=== PATIENT | female | born 2000 | race Caucasian/White ===

== ENCOUNTER 2022-04-03 12:39 | Inpatient (IN) ==
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
[2022-04-03 13:44] LABS: Appearance Urine Clear (Clear); Bacteria Urine Automated 1+ (Negative); Blood Urine Negative (Negative); Color Urine Dark Yellow; Epithelial Cell Urine Auto >30 /lpf (0-5); Glucose Urine UA Negative (Negative); Ketones Urine 1+ (Negative); Leukocyte Esterase Urine Trace (Negative); Nitrite Urine Negative (Negative); Protein Urine 1+ (Negative); RBC Urine Automated 0-4 /hpf (0-4); Specific Gravity Urine 1.029 (1.000-1.030); Urobilinogen Urine Negative (Negative); pH Urine 6.5 (4.5-7.5)
[2022-04-03 13:55] LABS: Bilirubin Urine 1+ (Negative)
[2022-04-03 14:07] LABS: Hematocrit (blood only) 42.1 % (37-47); Mean Corpuscular Hemoglobin 26.1 pg (25-34); Mean Corpuscular Hgb Conc 33.3 g/dL (32-36); Mean Corpuscular Volume 78.4 fL (80-100); Mean Platelet Volume 11.1 fL (7.4-10.4); Platelet Count 181 K/uL (130-400); RDW Coefficient of Variation 16.2 % (11.5-14.5); RDW Standard Deviation 46.6 fL (36.4-46.3); Red Blood Count 5.37 M/uL (4.2-5.4); White Blood Count 4.99 K/uL (4.8-10.8)
[2022-04-03 14:16] LABS: Calcium Oxalate Crystals Urine Present (None Prsent); Mucus Urine Present (None Prsent)
[2022-04-03 14:29] LABS: Basophils # (auto) 0.04 K/uL (0-0.2); Basophils % (auto) 0.8 %; Immature Granulocytes # (auto) 0.01 K/uL (0.00-0.02); Immature Granulocytes % (auto) 0.2 %; Lymphocytes # (auto) 1.59 K/uL (1.2-3.4); Lymphocytes % (auto) 31.9 %; Monocytes # (auto) 0.43 K/uL (0.11-0.59); Monocytes % (auto) 8.6 %; Neutrophils # (auto) 2.92 K/uL (1.4-6.5); Neutrophils % (auto) 58.5 %
[2022-04-03 14:32] LABS: Amphetamines+Metham, Urine Neg (Neg); Barbiturates, Urine Neg (Neg); Benzodiazepine, Urine Neg (Neg); Cocaine, Urine Neg (Neg); MDMA (Ecstacy), Urine Neg (Neg); Methadone, Urine Neg (Neg); Opiate, Urine Neg (Neg); Phencyclidine, Urine Neg (Neg)
[2022-04-03 14:36] LABS: Acetaminophen 7 ug/ml (10-30); Salicylate < 3.0 mg/dl (3.0-30)
[2022-04-03 14:37] LABS: Albumin Globulin Ratio 1.2 (0.9-2); Albumin Level 4.3 gm/dl (3.4-5.0); BUN Creatinine Ratio 7.1 (10-20); Bilirubin,Total 0.3 mg/dl (0.2-1.0); Calcium 9.6 mg/dl (8.5-10.1); Creatinine Clr Calc Pharmacy 100.2 ml/min; Est GFR (African American) 115.1 ml/min; Est GFR (Non-African American) 99.3 ml/min; Globulin 3.6 gm/dl (2.5-4.0); Potassium 3.8 mmol/L (3.5-5.1); Total Protein 7.9 gm/dl (6.0-8.3)
[2022-04-03 14:39] LABS: Pregnancy Test, Serum Negative (Negative)
[2022-04-03] MEDS ORDERED: MAGNESIUM HYDROXIDE SUSP 30 ML UDC PO PRN (18:07)
[2022-04-03] MEDS ORDERED: BISMUTH SUBSALICYLATE LIQD 236 ML PO PRN (18:07)
[2022-04-03] MEDS ORDERED: SODIUM CHLORIDE 0.65% NA SOLN 45 ML (OCEAN) PRN (18:07)
[2022-04-03] MEDS ORDERED: hydrOXYzine HCl 25 MG TAB PO PRN ×2 (18:07)
[2022-04-03] MEDS ORDERED: ACETAMINOPHEN 325 MG TAB PO PRN (18:07)
[2022-04-03] MEDS ORDERED: ALUMINUM/MAGNESIUM SUSP 30 ML UDC PO PRN (18:07)
[2022-04-03] MEDS: PATIENT'S OWN ORAL CONTRACEPTIVE PO SCH (20:34)
[2022-04-04] MEDS ORDERED: PATIENT'S OWN ORAL CONTRACEPTIVE PO SCH (09:00)
[2022-04-04] MEDS ORDERED: NON-FORMULARY PATIENT'S OWN MED PO SCH (09:00)
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
[2022-04-04] MEDS: MIRTAZAPINE TAB 15 MG TAB PO SCH (20:58)
[2022-04-04] MEDS: PATIENT'S OWN ORAL CONTRACEPTIVE PO SCH (20:58)
--- NOTE | 2022-04-05 08:58 | Psychiatric Progress Note ---
Date of Service April 05, 2022 Impression / Recommendations Impression The patient is a 21 year old woman with a history of ADHD, depression, anxiety, self-harm and trauma who was admitted for worsening depression, trauma symptoms, self-harm urges and SI with plan of overdose in setting of recent breakup. Diagnostically consistent with PTSD and TERI as well as unspecified depression and ADHD by history. History of impulsivity without sleep or mood changes seems more consistent with ADHD or cluster B traits rather than BPAD type II and no family history of BPAD nor alyse so SSRI trial felt to be reasonable even in context of no current mood stabilizer. The patient is deemed unstable and requires psychiatric hospitalization for diagnostic clarification, safety and stabilization, medication management and development of further coping skills. 04/05/22: Continues to have limited intake which she attributes to anxiety causing nausea but does have hx of restriction so monitoring and will order liquid drink supplement as she may be better able to tolerate liquid. Tolerating sertraline though it may be worsening nausea slightly. Slept well with mirtazapine. Continues to with significant depression and anxiety. (1) MDD (major depressive disorder), recurrent episode, moderate: (2) Suicidal ideation: (3) Post traumatic stress disorder (PTSD): (4) TERI (generalized anxiety disorder): (5) ADHD: 04/05/22: Continue with current medication and tx plan. Adding Zofran for nausea. Boost supplement shakes to help increase nutritional intake. 04/04/2022: The patient was admitted to the [facility] ([facility] mental health unit) on q15 min checks (behavioral with suicide precautions) for safety. The patient will participate in group, recreational, and milieu therapies and will be offered additional individual and family sessions as clinically appropriate. -sertraline 25mg daily with breakfast -mirtazapine 7.5 mg qhs Inventory Assets Strengths: trauma survivor, supportive family, attending college Needs: medication management, stabilization, additional coping skills, additional outpatient resources Suicide Risk Level Suicide Risk Level: High (q15 min suicide checks) (High-Moderate) Suicide Risk Level Comments: Having SI with plan prior to hospitalization and ongoing mood symptoms but feels safe in the hospital and able to safety contract. Risk Factors Assessment : Yes Do You Have Access To A Gun?: No (Secured in the home - father and brother have keys) Mental Health Diagnoses: Yes Substance Use Disorders: No Previous Attempt: No Hopelessness: Yes Protective Factors Assessment Employed: No Interval History Identifying Information ABHI GAINES is a 21-year-old woman who currently lives in [facility] with her parents, has a history of BPAD II, anorexia, ADHD, and was admitted on 04/03/22 18:08 on a 201 voluntary commitment for SI with plan. Chief Complaint "I'm still really nauseous". Review of Systems Sleep Information Total Hours of Sleep: 8 Sleep Comments: pt on q-15 minute checks Meal Information Percent Meal Consumed - Breakfast: 25 Percent Meal Consumed - Lunch: 50 Percent Meal Consumed - Dinner: 50 Subjective Subjective Patient was seen & assessed and interval progress reviewed with treatment team nursing and social work. Had a sore throat last night but afebrile. Reporting low mood yesterday evening. Slept better last night and had no dreams. No side effects from the mirtazapine but continues to have nausea today which she attributes to decreased appetite. Only ate salad off her lunch tray but she denies any calorie counting or restriction but can't eat much due to nausea. Consented to a dose of zofran tonight at dinner to see if this helps as she's previously tried OTC options like TUMS without benefit. She feels the sertraline may have helped to give her a little more energy today. Physical Exam Psychiatric Orientation: alert and oriented x 3 Apperance: appropriately dressed and appropriately groomed Eye Contact: good eye contact Motor Behavior: no abnormal motor movements Speech: normal rate/rhythm/volume of speech Affect: + depressed affect and + anxious affect Mood: + depressed mood and + anxious mood Thought Process: goal directed thought process Thought Content: reality based without delusions Suicidal Thoughts: denies suicidal thoughts (intermittent passive thoughts, feels safe in the hospital ), denies suicidal plan and denies suicidal intent Homicidal Thoughts: denies homicidal thoughts Hallucinations: no auditory hallucinations and no visual hallucinations Cognition: recent memory grossly intact, remote memory grossly intact, attention grossly intact and language grossly intact Estimated Intelligence: consistent with education level Insight: + fair insight Judgement: + fair judgement Vital Signs (Past 24 Hours) Last Vital Signs Temp 36.5 C 04/05/22 06:00 Pulse 116 H 04/05/22 06:20 Resp 16 04/05/22 06:00 BP 106/64 04/05/22 06:20 Pulse Ox 96 05/30/22 19:26 Results & Data ([facility] [[email or web address] Current Inpatient Medications Current Inpatient Medications: Current Inpatient Medications Acetaminophen (Acetaminophen 325 Mg Tab) 650 mg PO Q4H PRN PRN Reason: Headache or Minor Fever Stop: 05/03/22 18:06 Last Admin: 04/04/22 19:38 Dose: 650 mg Documented by: Al Hydrox/Mg Hydrox/Simethicone (Aluminum/Magnesium Susp 30 Ml Udc) 30 ml PO Q4H PRN PRN Reason: GI Upset Stop: 05/03/22 18:06 Bismuth Subsalicylate (Bismuth Subsalicylate Liqd 236 Ml) 15 ml PO PRN PRN PRN Reason: Loose Stool Stop: 05/03/22 18:06 Hydroxyzine HCl (Hydroxyzine Hcl 25 Mg Tab) 50 mg PO HSZ PRN PRN Reason: Insomnia Stop: 05/03/22 18:06 Hydroxyzine HCl (Hydroxyzine Hcl 25 Mg Tab) 25 mg PO Q4H PRN PRN Reason: Anxiety Stop: 05/03/22 18:06 Magnesium Hydroxide (Magnesium Hydroxide Susp 30 Ml Udc) 30 ml PO DAILY PRN PRN Reason: Constipation Stop: 05/03/22 18:06 Mirtazapine (Mirtazapine Tab 15 Mg Tab) 7.5 mg PO HS JEANIE Stop: 05/04/22 21:59 Last Admin: 04/04/22 20:58 Dose: 7.5 mg Documented by: Miscellaneous (Patient's Own Oral Contraceptive) 1 ea PO DAILY@1999 [facility] Stop: 05/03/22 19:59 Last Admin: 04/04/22 20:58 Dose: 1 ea Documented by: Sertraline HCl (Sertraline Hcl 50 Mg Tablet) 25 mg PO QAM JEANIE Stop: 05/05/22 08:59 Sodium Chloride (Sodium Chloride 0.65% Na Soln 45 Ml ([place])) 1 - 2 sprays NA PRN PRN PRN Reason: Nasal Dryness/Congestion Stop: 05/03/22 18:06 Post Discharge Appointments Primary Care Physician Name Of Family Doctor: Dr. Mk Carlson
[2022-04-05] MEDS: SERTRALINE HCL 50 MG TABLET PO SCH (09:37)
[2022-04-05 16:21] LABS: Chlamydia Trach RNA NOT DETECTED (NOT DETECTED); GC (Neis gonorrhoeae) RNA NOT DETECTED (NOT DETECTED)
[2022-04-05] MEDS: ONDANSETRON 2 MG OD TAB PO PRN (17:15)
[2022-04-05] MEDS: PATIENT'S OWN ORAL CONTRACEPTIVE PO SCH (22:13)
[2022-04-05] MEDS: MIRTAZAPINE TAB 15 MG TAB PO SCH (22:13)
[2022-04-05 23:42] LABS: Marijuana Quant, GCMS Urine 284 ng/mL (<5)
[2022-04-06] MEDS: ONDANSETRON 2 MG OD TAB PO PRN (08:43)
--- NOTE | 2022-04-06 08:53 | Psychiatric Progress Note ---
Date of Service April 06, 2022 Impression / Recommendations Impression The patient is a 21 year old woman with a history of ADHD, depression, anxiety, self-harm and trauma who was admitted for worsening depression, trauma symptoms, self-harm urges and SI with plan of overdose in setting of recent breakup. Diagnostically consistent with PTSD and TERI as well as unspecified depression and ADHD by history. History of impulsivity without sleep or mood changes seems more consistent with ADHD or cluster B traits rather than BPAD type II and no family history of BPAD nor alyse so SSRI trial felt to be reasonable even in context of no current mood stabilizer. The patient is deemed unstable and requires psychiatric hospitalization for diagnostic clarification, safety and stabilization, medication management and development of further coping skills. 04/06/22: Continues to have decreased po intake but improving a little bit, poor sleep last night, ongoing depression, anxiety and PTSD symptoms. Consents to sertraline dose increase as she is tolerating this well. (1) MDD (major depressive disorder), recurrent episode, moderate: (2) Suicidal ideation: (3) Post traumatic stress disorder (PTSD): (4) TERI (generalized anxiety disorder): (5) ADHD: 04/06/22: Increase sertraline to 50mg qd with breakfast. Continue with mirtazapine. 04/05/22: Continue with current medication and tx plan. Adding Zofran for nausea. Boost supplement shakes to help increase nutritional intake. 04/04/2022: The patient was admitted to the [facility] ([facility] mental health unit) on q15 min checks (behavioral with suicide precautions) for safety. The patient will participate in group, recreational, and milieu therapies and will be offered additional individual and family sessions as clinically appropriate. -sertraline 25mg daily with breakfast -mirtazapine 7.5 mg qhs Inventory Assets Strengths: trauma survivor, supportive family, attending college Needs: medication management, stabilization, additional coping skills, additional outpatient resources Suicide Risk Level Suicide Risk Level: Moderate (q15 min suicide checks) Suicide Risk Level Comments: Having SI with plan prior to hospitalization and ongoing mood symptoms but feels safe in the hospital and denies SI and able to safety contract. Risk Factors Assessment : Yes Do You Have Access To A Gun?: No (Secured in the home - father and brother have keys) Mental Health Diagnoses: Yes Substance Use Disorders: No Previous Attempt: No Hopelessness: Yes Protective Factors Assessment Employed: No Interval History Identifying Information ABHI GAINES is a 21-year-old woman who currently lives in [facility] with her parents, has a history of BPAD II, anorexia, ADHD, and was admitted on 04/03/22 18:08 on a 201 voluntary commitment for SI with plan. Chief Complaint "I'm feeling a bit less unsettled". Review of Systems Sleep Information Total Hours of Sleep: 8 Sleep Comments: pt on q-15 minute checks Meal Information Percent Meal Consumed - Breakfast: 50 Percent Meal Consumed - Lunch: 20 Percent Meal Consumed - Dinner: 75 Nutrition Comment: Pt. ordered a salad, mashed potatoes and sherbet. Vanilla boost provided Subjective Subjective Patient was seen & assessed and interval progress reviewed with treatment team nursing and social work. Used prn zofran before breakfast, it improved after taking it last evening and ate 75% of her dinner. Out of her room. Feels her mood is improving a little bit but still with depression and trauma symptoms including physical sensations that remind of trauma and intrusive thoughts and flashbacks. Feels her appetite is improving. No SI nor thoughts of self-harm today. Still struggling with decreased motivation. Had some difficulty with sleep last night. Slight LOPEZ but no other medication side effects. No night terrors. Physical Exam Psychiatric Orientation: alert and oriented x 3 Apperance: appropriately dressed and appropriately groomed Eye Contact: good eye contact Motor Behavior: no abnormal motor movements Speech: normal rate/rhythm/volume of speech Affect: + depressed affect and + anxious affect Mood: + depressed mood and + anxious mood Thought Process: goal directed thought process Thought Content: reality based without delusions Suicidal Thoughts: denies suicidal thoughts Homicidal Thoughts: denies homicidal thoughts Hallucinations: no auditory hallucinations and no visual hallucinations Cognition: recent memory grossly intact, remote memory grossly intact, attention grossly intact and language grossly intact Estimated Intelligence: consistent with education level Insight: + fair insight Judgement: + fair judgement Vital Signs (Past 24 Hours) Last Vital Signs Temp 36.7 C 04/06/22 06:00 Pulse 78 04/06/22 06:21 Resp 16 04/06/22 06:00 BP 99/61 L 04/06/22 06:21 Pulse Ox 96 04/03/22 19:26 Results & Data ([facility]) Laboratory Results Laboratory Results - last 24 hr 04/03/22 04/03/22 13:09 13:09 U Marijuana THC Carboxy 284 H Drug Screen Comment SEE NOTE C.trachomatis RNA NOT DETECTED N.gonorrhoeae RNA NOT DETECTED Reference Lab Comment SEE NOTE Current Inpatient Medications Current Inpatient Medications: Current Inpatient Medications Acetaminophen (Acetaminophen 325 Mg Tab) 650 mg PO Q4H PRN PRN Reason: Headache or Minor Fever Stop: 05/03/22 18:06 Last Admin: 04/04/22 19:38 Dose: 650 mg Documented by: Al Hydrox/Mg Hydrox/Simethicone (Aluminum/Magnesium Susp 30 Ml Udc) 30 ml PO Q4H PRN PRN Reason: GI Upset Stop: 05/03/22 18:06 Bismuth Subsalicylate (Bismuth Subsalicylate Liqd 236 Ml) 15 ml PO PRN PRN PRN Reason: Loose Stool Stop: 05/03/22 18:06 Hydroxyzine HCl (Hydroxyzine Hcl 25 Mg Tab) 50 mg PO HSZ PRN PRN Reason: Insomnia Stop: 05/03/22 18:06 Hydroxyzine HCl (Hydroxyzine Hcl 25 Mg Tab) 25 mg PO Q4H PRN PRN Reason: Anxiety Stop: 05/03/22 18:06 Magnesium Hydroxide (Magnesium Hydroxide Susp 30 Ml Udc) 30 ml PO DAILY PRN PRN Reason: Constipation Stop: 05/03/22 18:06 Mirtazapine (Mirtazapine Tab 15 Mg Tab) 7.5 mg PO HS JEANIE Stop: 05/04/22 21:59 Last Admin: 04/05/22 22:13 Dose: 7.5 mg Documented by: Miscellaneous (Patient's Own Oral Contraceptive) 1 ea PO DAILY@1999 [facility] Stop: 05/03/22 19:59 Last Admin: 04/05/22 22:13 Dose: 1 ea Documented by: Ondansetron HCl (Ondansetron 2 Mg Od Tab) 2 mg PO DAILY PRN PRN Reason: Nausea Stop: 05/05/22 14:24 Last Admin: 04/06/22 08:43 Dose: 2 mg Documented by: Sertraline HCl (Sertraline Hcl 50 Mg Tablet) 25 mg PO QAM JEANIE Stop: 05/05/22 08:59 Last Admin: 04/05/22 09:37 Dose: 25 mg Documented by: Sodium Chloride (Sodium Chloride 0.65% Na Soln 45 Ml ([place])) 1 - 2 sprays NA PRN PRN PRN Reason: Nasal Dryness/Congestion Stop: 05/03/22 18:06 Mental Health & Subst Abuse Tx Psychiatrist Name of Psychiatrist: Vida Vargas Psychiatrist's Date of Appointment with Psychiatrist: 05/10/22 Time of Appointment with Psychiatrist: 10:20 a.m. also put on the cancellation list for a sooner appt Psychiatric Appointment Comment: [address] [facility] Therapist Name of Therapist: [facility] - Eve Calderón LCSW, CCTP Therapist's Therapy Appointment Comment: [address] Post Discharge Appointments Primary Care Physician Name Of Family Doctor: Dr. Mk Carlson
[2022-04-06] MEDS: SERTRALINE HCL 50 MG TABLET PO SCH (09:09)
[2022-04-06] MEDS: MIRTAZAPINE TAB 15 MG TAB PO SCH (20:56)
[2022-04-06] MEDS: PATIENT'S OWN ORAL CONTRACEPTIVE PO SCH (20:56)
--- NOTE | 2022-04-07 08:46 | Psychiatric Progress Note ---
Date of Service April 07, 2022 Impression / Recommendations Impression The patient is a 21 year old woman with a history of ADHD, depression, anxiety, self-harm and trauma who was admitted for worsening depression, trauma symptoms, self-harm urges and SI with plan of overdose in setting of recent breakup. Diagnostically consistent with PTSD and TERI as well as unspecified depression and ADHD by history. History of impulsivity without sleep or mood changes seems more consistent with ADHD or cluster B traits rather than BPAD type II and no family history of BPAD nor alyse so SSRI trial felt to be reasonable even in context of no current mood stabilizer. The patient is deemed unstable and requires psychiatric hospitalization for diagnostic clarification, safety and stabilization, medication management and development of further coping skills. 04/07/22: Appetite low but improving po intake,increase in trauma symptoms and depression today after upsetting dream related to ex-boyfriend last night.Tolerating higher dose of sertraline well. (1) MDD (major depressive disorder), recurrent episode, moderate: (2) Suicidal ideation: (3) Post traumatic stress disorder (PTSD): (4) TERI (generalized anxiety disorder): (5) ADHD: 04/07/22: Continue with sertraline 50mg qd and mirtazapine qhs. Needs family meeting. 04/06/22: Increase sertraline to 50mg qd with breakfast. Continue with mirtazapine. 04/05/22: Continue with current medication and tx plan. Adding Zofran for nausea. Boost supplement shakes to help increase nutritional intake. 04/04/2022: The patient was admitted to the [facility] ([facility] unit) on q15 min checks (behavioral with suicide precautions) for safety. The patient will participate in group, recreational, and milieu therapies and will be offered additional individual and family sessions as clinically appropriate. -sertraline 25mg daily with breakfast -mirtazapine 7.5 mg qhs Inventory Assets Strengths: trauma survivor, supportive family, attending college Needs: medication management, stabilization, additional coping skills, additional outpatient resources Suicide Risk Level Suicide Risk Level: Moderate (q15 min suicide checks) Suicide Risk Level Comments: Having SI with plan prior to hospitalization and ongoing mood symptoms but feels safe in the hospital and denies SI and able to safety contract. Risk Factors Assessment : Yes Do You Have Access To A Gun?: No (Secured in the home - father and brother have keys) Mental Health Diagnoses: Yes Substance Use Disorders: No Previous Attempt: No Hopelessness: Yes Protective Factors Assessment Employed: No Interval History Identifying Information ABHI GAINES is a 21-year-old woman who currently lives in [facility] with her parents, has a history of BPAD II, anorexia, ADHD, and was admitted on 04/03/22 18:08 on a 201 voluntary commitment for SI with plan. Chief Complaint "I had a tough morning". Review of Systems Sleep Information Total Hours of Sleep: 6.5 Sleep Comments: pt on q-15 minute checks Meal Information Percent Meal Consumed - Breakfast: 40 Percent Meal Consumed - Lunch: 50 Percent Meal Consumed - Dinner: 50 Nutrition Comment: Pt. ordered a salad, mashed potatoes and sherbet. Vanilla boost provided Subjective Subjective Patient was seen & assessed and interval progress reviewed with treatment team nursing and social work. Needs to complete paperwork for therapy referral. Had a dream last night about her ex-boyfriend which negatively impacted her mood. This afternoon feeling a little bit better. Nausea has resolved. No side effects from the medication. Continues to experience significant depression but no SI nor urges for self-harm today. Appetite remains low but she's eating more. Physical Exam Psychiatric Orientation: alert and oriented x 3 Apperance: appropriately dressed and appropriately groomed Eye Contact: good eye contact Motor Behavior: no abnormal motor movements Speech: normal rate/rhythm/volume of speech Affect: + depressed affect and + anxious affect Mood: + depressed mood and + anxious mood Thought Process: goal directed thought process Thought Content: reality based without delusions Suicidal Thoughts: denies suicidal thoughts Homicidal Thoughts: denies homicidal thoughts Hallucinations: no auditory hallucinations and no visual hallucinations Cognition: recent memory grossly intact, remote memory grossly intact, attention grossly intact and language grossly intact Estimated Intelligence: consistent with education level Insight: + fair insight Judgement: + fair judgement Vital Signs (Past 24 Hours) Last Vital Signs Temp 36.7 C 04/07/22 06:42 Pulse 94 H 04/07/22 06:43 Resp 16 04/07/22 06:42 BP 101/61 04/07/22 06:43 Pulse Ox 96 04/03/22 19:26 Results & Data ([facility]) Current Inpatient Medications Current Inpatient Medications: Current Inpatient Medications Acetaminophen (Acetaminophen 325 Mg Tab) 650 mg PO Q4H PRN PRN Reason: Headache or Minor Fever Stop: 05/03/22 18:06 Last Admin: 04/04/22 19:38 Dose: 650 mg Documented by: Al Hydrox/Mg Hydrox/Simethicone (Aluminum/Magnesium Susp 30 Ml Udc) 30 ml PO Q4H PRN PRN Reason: GI Upset Stop: 05/03/22 18:06 Bismuth Subsalicylate (Bismuth Subsalicylate Liqd 236 Ml) 15 ml PO PRN PRN PRN Reason: Loose Stool Stop: 05/03/22 18:06 Hydroxyzine HCl (Hydroxyzine Hcl 25 Mg Tab) 50 mg PO HSZ PRN PRN Reason: Insomnia Stop: 05/03/22 18:06 Hydroxyzine HCl (Hydroxyzine Hcl 25 Mg Tab) 25 mg PO Q4H PRN PRN Reason: Anxiety Stop: 05/03/22 18:06 Magnesium Hydroxide (Magnesium Hydroxide Susp 30 Ml Udc) 30 ml PO DAILY PRN PRN Reason: Constipation Stop: 05/03/22 18:06 Mirtazapine (Mirtazapine Tab 15 Mg Tab) 7.5 mg PO HS JEANIE Stop: 05/04/22 21:59 Last Admin: 04/06/22 20:56 Dose: 7.5 mg Documented by: Miscellaneous (Patient's Own Oral Contraceptive) 1 ea PO DAILY@1999 [facility] Stop: 05/03/22 19:59 Last Admin: 04/06/22 20:56 Dose: 1 ea Documented by: Ondansetron HCl (Ondansetron 2 Mg Od Tab) 2 mg PO DAILY PRN PRN Reason: Nausea Stop: 05/05/22 14:24 Last Admin: 04/06/22 08:43 Dose: 2 mg Documented by: Sertraline HCl (Sertraline Hcl 50 Mg Tablet) 50 mg PO QAM [facility] Stop: 05/07/22 08:59 Sodium Chloride (Sodium Chloride 0.65% Na Soln 45 Ml ([place])) 1 - 2 sprays NA PRN PRN PRN Reason: Nasal Dryness/Congestion Stop: 05/03/22 18:06 Mental Health & Subst Abuse Tx Psychiatrist Name of Psychiatrist: Vida Vargas Psychiatrist's Date of Appointment with Psychiatrist: 05/10/22 Time of Appointment with Psychiatrist: 10:20 a.m. also put on the cancellation list for a sooner appt Psychiatric Appointment Comment: [address] [facility] Therapist Name of Therapist: [facility] - Eve Calderón LCSW, [place] Therapist's Date of Therapist Appointment: 04/13/22 Time of Therapist Appointment: 2:00 PM Therapy Appointment Comment: Teletherapy Post Discharge Appointments Primary Care Physician Name Of Family Doctor: Dr. Mk Carlson
[2022-04-07] MEDS: SERTRALINE HCL 50 MG TABLET PO SCH (09:03)
[2022-04-07] MEDS: PATIENT'S OWN ORAL CONTRACEPTIVE PO SCH (22:36)
[2022-04-07] MEDS: MIRTAZAPINE TAB 15 MG TAB PO SCH (22:37)
[2022-04-08] MEDS: SERTRALINE HCL 50 MG TABLET PO SCH (08:28)
--- NOTE | 2022-04-08 08:50 | Psychiatric Progress Note ---
Date of Service April 08, 2022 Impression / Recommendations Impression The patient is a 21 year old woman with a history of ADHD, depression, anxiety, self-harm and trauma who was admitted for worsening depression, trauma symptoms, self-harm urges and SI with plan of overdose in setting of recent breakup. Diagnostically consistent with PTSD and TERI as well as unspecified depression and ADHD by history. History of impulsivity without sleep or mood changes seems more consistent with ADHD or cluster B traits rather than BPAD type II and no family history of BPAD nor alyse so SSRI trial felt to be reasonable even in context of no current mood stabilizer. The patient is deemed unstable and requires psychiatric hospitalization for diagnostic clarification, safety and stabilization, medication management and development of further coping skills. 04/08/22: Steady improvement in mood, no SI today. Tolerating higher dose of sertraline well. Mirtazapine helping with sleep and appetite. Motivational interviewing regarding substance use. (1) MDD (major depressive disorder), recurrent episode, moderate: (2) Suicidal ideation: (3) Post traumatic stress disorder (PTSD): (4) TERI (generalized anxiety disorder): (5) ADHD: 04/08/22: Continue with current medications and tx plan. Motivational interviewing regarding substance use. 04/07/22: Continue with sertraline 50mg qd and mirtazapine qhs. Needs family meeting. 04/06/22: Increase sertraline to 50mg qd with breakfast. Continue with mirtazapine. 04/05/22: Continue with current medication and tx plan. Adding Zofran for nausea. Boost supplement shakes to help increase nutritional intake. 04/04/2022: The patient was admitted to the [facility] ([facility] mental health unit) on q15 min checks (behavioral with suicide precautions) for safety. The patient will participate in group, recreational, and milieu therapies and will be offered additional individual and family sessions as clinically appropriate. -sertraline 25mg daily with breakfast -mirtazapine 7.5 mg qhs Inventory Assets Strengths: trauma survivor, supportive family, attending college Needs: medication management, stabilization, additional coping skills, additional outpatient resources Suicide Risk Level Suicide Risk Level: Moderate (q15 min suicide checks) Suicide Risk Level Comments: Having SI with plan prior to hospitalization and ongoing mood symptoms but feels safe in the hospital and denies SI and able to safety contract. Risk Factors Assessment : Yes Do You Have Access To A Gun?: No (Secured in the home - father and brother have keys) Mental Health Diagnoses: Yes Substance Use Disorders: No Previous Attempt: No Hopelessness: Yes Protective Factors Assessment Employed: No Interval History Identifying Information ABHI GAINES is a 21-year-old woman who currently lives in [facility] with her parents, has a history of BPAD II, anorexia, ADHD, and was admitted on 04/03/22 18:08 on a 201 voluntary commitment for SI with plan. Chief Complaint "I had a good meeting". Review of Systems Sleep Information Total Hours of Sleep: 6.5 Sleep Comments: pt on q-15 minute checks Meal Information Percent Meal Consumed - Breakfast: 50 Percent Meal Consumed - Lunch: 100 Percent Meal Consumed - Dinner: 100 Nutrition Comment: Pt. ordered a salad, mashed potatoes and sherbet. Vanilla boost provided Subjective Subjective Patient was seen & assessed and interval progress reviewed with treatment team nursing and social work. Ate 100% of her meals yesterday at lunch and dinner. Completed therapy intake paperwork. Slept better last night without any nightmares or upsetting dreams. No side effects from the medication. No urges for self-harm nor SI. She feels her mood is improving. No nausea. Physical Exam Psychiatric Orientation: alert and oriented x 3 Apperance: appropriately dressed and appropriately groomed Eye Contact: good eye contact Motor Behavior: no abnormal motor movements Speech: normal rate/rhythm/volume of speech Affect: euthymic affect Mood: + anxious mood; no depressed mood Thought Process: goal directed thought process Thought Content: reality based without delusions Suicidal Thoughts: denies suicidal thoughts Homicidal Thoughts: denies homicidal thoughts Hallucinations: no auditory hallucinations and no visual hallucinations Cognition: recent memory grossly intact, remote memory grossly intact, attention grossly intact and language grossly intact Estimated Intelligence: consistent with education level Insight: good insight Judgement: + fair judgement Vital Signs (Past 24 Hours) Last Vital Signs Temp 36.4 C L 04/08/22 06:31 Pulse 89 04/08/22 06:32 Resp 16 04/08/22 06:31 BP 93/59 L 04/08/22 06:32 Pulse Ox 96 04/03/22 19:26 Results & Data ([facility]) Current Inpatient Medications Current Inpatient Medications: Current Inpatient Medications Acetaminophen (Acetaminophen 325 Mg Tab) 650 mg PO Q4H PRN PRN Reason: Headache or Minor Fever Stop: 05/03/22 18:06 Last Admin: 04/04/22 19:38 Dose: 650 mg Documented by: Al Hydrox/Mg Hydrox/Simethicone (Aluminum/Magnesium Susp 30 Ml Udc) 30 ml PO Q4H PRN PRN Reason: GI Upset Stop: 05/03/22 18:06 Bismuth Subsalicylate (Bismuth Subsalicylate Liqd 236 Ml) 15 ml PO PRN PRN PRN Reason: Loose Stool Stop: 05/03/22 18:06 Hydroxyzine HCl (Hydroxyzine Hcl 25 Mg Tab) 50 mg PO HSZ PRN PRN Reason: Insomnia Stop: 05/03/22 18:06 Hydroxyzine HCl (Hydroxyzine Hcl 25 Mg Tab) 25 mg PO Q4H PRN PRN Reason: Anxiety Stop: 05/03/22 18:06 Magnesium Hydroxide (Magnesium Hydroxide Susp 30 Ml Udc) 30 ml PO DAILY PRN PRN Reason: Constipation Stop: 05/03/22 18:06 Mirtazapine (Mirtazapine Tab 15 Mg Tab) 7.5 mg PO HS [facility] Stop: 05/04/22 21:59 Last Admin: 04/07/22 22:37 Dose: 7.5 mg Documented by: Miscellaneous (Patient's Own Oral Contraceptive) 1 ea PO DAILY@1999 [facility] Stop: 05/03/22 19:59 Last Admin: 04/07/22 22:36 Dose: 1 ea Documented by: Ondansetron HCl (Ondansetron 2 Mg Od Tab) 2 mg PO DAILY PRN PRN Reason: Nausea Stop: 05/05/22 14:24 Last Admin: 04/06/22 08:43 Dose: 2 mg Documented by: Sertraline HCl (S[facility]raline Hcl 50 Mg Tablet) [facility] [place] Stop: 05/07/22 08:59 Last Admin: 04/08/22 08:28 Dose: 50 mg Documented by: Sodium Chloride (Sodium Chloride 0.65% Na Soln 45 Ml ([place])) 1 - 2 sprays NA PRN PRN PRN Reason: Nasal Dryness/Congestion Stop: 05/03/22 18:06 Mental Health & Subst Abuse Tx Psychiatrist Name of Psychiatrist: Vida Vargas Psychiatrist's Date of Appointment with Psychiatrist: 05/10/22 Time of Appointment with Psychiatrist: 10:20 a.m. also put on the cancellation list for a sooner appt Psychiatric Appointment Comment: [address] [facility] Therapist Name of Therapist: [facility] - Eve Calderón, SP[employer] MACHINE OPERATOR, CCTP Therapist's Date of Therapist Appointment: 04/13/22 Time of Therapist Appointment: 2:00 PM Therapy Appointment Comment: Teletherapy Post Discharge Appointments Primary Care Physician Name Of Family Doctor: Dr. Mk Carlson - (will see KRISTINA Anderson) Primary Care Date of Appointment with PCP: 04/10/22 Time of Appointment with PCP: 10:45 AM Provider Appointment Comment: [phone], [place] [id number]
[2022-04-08] MEDS: PATIENT'S OWN ORAL CONTRACEPTIVE PO SCH (21:04)
[2022-04-08] MEDS: MIRTAZAPINE TAB 15 MG TAB PO SCH (21:04)
[2022-04-09] MEDS: SERTRALINE HCL 50 MG TABLET PO SCH (08:46)
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
== END 2022-04-09 10:32 | disposition home or self-care (01) | DRG 885 ==
LOC: ED 12:39 → 3S 18:08